=== PATIENT | female | born 1945 | race Two or more races ===

== ENCOUNTER 2017-11-04 13:59 | Day surgery (SDC) | payer OTHER ==
[~2017-11-04] VITALS: Ht 152.4 cm; Wt 73.9 kg
[~2017-11-04 13:59] MED LIST: ALPRAZOLAM1 M1 PO; LEVO-T75 MCG PO; LOSARTAN POTASS50 MG PO
== END 2017-11-04 14:00 | disposition home or self-care (01) ==
LOC: CIR.AMB 13:59 → RECOVERY 16:00
DX: M48.07 Spinal stenosis, lumbosacral region (principal); M51.36 Other intervertebral disc degeneration, lumbar region; M47.817 Spondylosis without myelopathy or radiculopathy, lumbosacral region